=== PATIENT | female | born 2000 | race Caucasian/White ===

== ENCOUNTER 2021-03-17 08:31 | Day surgery (SDC) | payer BC ==
[~2021-03-17] VITALS: Ht 157.5 cm; Wt 66.0 kg
[2021-03-17] MEDS ORDERED: LINZESS72 MCG PO (09:45)
[2021-03-17] MEDS ORDERED: LEXAPRO 10MG10 MG PO (09:45)
[2021-03-17 09:46] VITALS: BP 114/74; PULSE 62; TEMP 98.1
[2021-03-17 10:45] VITALS: BP 102/70; PULSE 63; TEMP 97.8
--- NOTE | 2021-03-17 10:45 | NUR ---
The patient arrived back to [facility] from the endoscopy suite at this time. The patient appears drowsy but arouses easily to her name. The patient ambulated from the cart to the recliner in her room with the stand by assistance of two nurses. The patient agrees to try a muffin and water. Call light is within reach. Will continue to monitor the patient.
[2021-03-17 11:00] VITALS: BP 108/73; PULSE 66
--- NOTE | 2021-03-17 11:00 | NUR ---
The patient appears to be tolerating the food and drink well. Vital signs appear stable. Dr. Feldman attempted to call the patient's mother to go over the procedure results but there was no answer. Will continue to monitor the patient.
--- NOTE | 2021-03-17 11:15 | NUR ---
Discharge instructions were reviewed with the patient at this time. She verbalized understanding and has no questions for the nurse at this time. THe patient's IV was removed and a pressure dressing was applied to the site. The nurse instructed the patient to get dressed and notify the staff when she is ready to be escorted out.
--- NOTE | 2021-03-17 11:25 | NUR ---
The patient was escorted out via wheelchair to a private vehicle by [employer]. The patient's belongings and discharge paperwork were sent with her. The patient's friend, Regina, is present to drive her home.
== END 2021-03-17 11:25 | disposition home or self-care (01) ==
LOC: SDCO 08:31
DX: K59.00 Constipation, unspecified (principal); R19.7 Diarrhea, unspecified; R14.0 Abdominal distension (gaseous); K64.0 First degree hemorrhoids; K62.89 Other specified diseases of anus and rectum; K21.9 Gastro-esophageal reflux disease without esophagitis; K58.9 Irritable bowel syndrome, unspecified; F41.9 Anxiety disorder, unspecified; F32.9 Major depressive disorder, single episode, unspecified; Z20.822 Contact with and (suspected) exposure to COVID-19; Z79.899 Other long term (current) drug therapy
CPT/HCPCS: J2704

== ENCOUNTER → 2021-08-15 | Outpatient (CLI) | payer BC ==
[~2021-08-15] MED LIST: LEXAPRO 10MG10 MG PO; LINZESS72 MCG PO
== END ==
LOC: COL.RAD 07:58
DX: R11.2 Nausea with vomiting, unspecified (principal); K59.00 Constipation, unspecified; F41.9 Anxiety disorder, unspecified; R19.7 Diarrhea, unspecified
CPT/HCPCS: A9541

== ENCOUNTER → 2022-01-15 | Outpatient (CLI) | payer BC | LOC: COL.RAD 09:29 | DX: M25.552 Pain in left hip (principal) | CPT/HCPCS: A9585; J3301; Q9967 ==